=== PATIENT | female | born 1975 | race Caucasian/White ===

== ENCOUNTER 2017-01-19 11:56 | Outpatient (CLI) | payer MEDICAID ==
[~2017-01-19] VITALS: Ht 162.6 cm; Wt 79.1 kg
[2017-01-19] MEDS ORDERED: HYDRALAZINE HCL10 MG PO (15:39)
[2017-01-19] MEDS ORDERED: GLIPIZIDE10 MG PO (15:39)
[2017-01-19] MEDS ORDERED: CATAPRES0.1 MG PO (15:40)
[2017-01-19] MEDS ORDERED: COREG 3.1253.125 MG PO (15:40)
[2017-01-19] MEDS ORDERED: FOLATE0.4 MG PO (15:41)
[2017-01-19] MEDS ORDERED: VITAMIN D31000 UNI2 PO (15:42)
[2017-01-19] MEDS ORDERED: COLACE100 MG PO (15:42)
[2017-01-19] MEDS ORDERED: FERROUS SULFAT325 MG PO (15:42)
[2017-01-19] MEDS ORDERED: VITAMIN B-150 MG PO (15:43)
--- NOTE | 2017-01-19 16:10 | NUR ---
FIRST UNIT PRBC'S UP WITH NS AND BLOOD TUBING. SANDWICH TRAY GIVEN.
[2017-01-19 16:25] VITALS: BP 196/99; BMI 29.9
--- NOTE | 2017-01-19 18:08 | NUR ---
PRBC'S INFUSING WITHOUT SIGNS OF REACTION. CONSUMED 100% OF DIABETIC DIET. DENIES NEEDS. FAMILY AT BEDSIDE.
[2017-01-19 20:31] VITALS: Ht 162.6 cm; Wt 79.1 kg
== END 2017-01-19 23:24 | disposition home or self-care (01) ==
LOC: D.OPS 11:56 → D.M2 19:21 → D.OPS 23:24
DX: D64.9 Anemia, unspecified (principal)

== ENCOUNTER 2018-02-17 08:03 | Outpatient (CLI) | payer MEDICARE ==
[~2018-02-17] VITALS: Ht 162.6 cm; Wt 79.5 kg
[~2018-02-17 08:03] MED LIST: CATAPRES0.1 MG PO; COLACE100 MG PO; COREG 3.1253.125 MG PO; FERROUS SULFAT325 MG PO; FOLATE0.4 MG PO; GLIPIZIDE10 MG PO; HYDRALAZINE HCL10 MG PO; VITAMIN B-150 MG PO; VITAMIN D31000 UNI2 PO
[2018-02-17 09:56] VITALS: BP 125/60; Ht 162.6 cm; Wt 79.5 kg
== END 2018-02-17 15:45 | disposition home or self-care (01) ==
LOC: D.OPS 08:03
DX: D63.1 Anemia in chronic kidney disease (principal); N18.9 Chronic kidney disease, unspecified

== ENCOUNTER 2018-06-13 05:29 | Day surgery (SDC) | payer MEDICARE ==
[2018-06-12 13:13] LABS: EOSINOPHILS 2.1 % (0-7); HEMATOCRIT 37.5 % (36.0-48.0); HEMOGLOBIN 12.3 g/dL (12-16); IMMATURE GRANULOCYTES 0.1 % (0-5); LYMPHOCYTES 15.8 % (15-50); MCH 31.9 pg (26.0-34.0); MCHC 32.8 g/dL (31.0-37.0); MCV 97.4 fL (80.0-100.0); MEAN PLATELET VOLUME 13.3 fL (7.4-10.4); MONOCYTES 6.9 % (2-11); NEUTROPHILS 74.1 % (40-80); PLATELET COUNT 142 10x3/uL (130-400); RBC 3.85 10x6/uL (4.00-5.40); RDW 14.3 % (11.5-14.5); WBC 7.2 10x3/uL (4.8-10.8)
[2018-06-12 13:25] LABS: ANION GAP 14.7 mmol/L (8-16); CALCIUM 8.4 mg/dL (8.5-10.1); CARBON DIOXIDE 24.9 mmol/L (21.0-32.0); CREATININE - SERUM 2.4 mg/dL (0.6-1.3); POTASSIUM - SERUM 3.6 mmol/L (3.5-5.1)
[2018-06-12 13:29] LABS: PROTIME 13.6 SECONDS (11.6-15.0)
[2018-06-12 13:30] LABS: INR 1.1 (0.85-1.17)
[2018-06-12 13:37] LABS: APTT 28.1 SECONDS (22.8-39.4)
[~2018-06-13] VITALS: Ht 167.6 cm; Wt 73.5 kg
--- NOTE | ~2018-06-13 | OP ---
PATIENT NAME: NY SCHWARTZ MEDICAL RECORD: [id number] :71 LOCATION:[facility] ADMISSION DATE: SURGEON: BRITNI GIANG MD DATE OF OPERATION: 06/13/2018 PREOPERATIVE DIAGNOSES: End-stage renal disease on chronic hemodialysis, dependence on hemodialysis, diabetes type 2 with renal manifestations, and essential hypertension. POSTOPERATIVE DIAGNOSES: End-stage renal disease on chronic hemodialysis, dependence on hemodialysis, diabetes type 2 with renal manifestations, and essential hypertension. OPERATION PERFORMED: Creation of a Lazaro type left brachial artery to basilic vein AV fistula as a first stage or preparation for a second stage procedure to create a brachial artery to translocated basilic fistula. SURGEON: Britni Giang MD ANESTHESIA: Regional nerve block plus general with LMA per WASHCOAT WIPER. REFERRING PHYSICIAN: Daryl England MD PREOPERATIVE NOTE: Ms. Schwartz is a 42-year-old white female patient with end-stage renal disease due to diabetes and hypertension is presently dialyzing with a tunneled dialysis catheter in the right internal jugular vein. She needs long-term access. Vein mapping has showed small veins. She is right handed. I am going to operate on the left and ultrasound to be sure, but I am most likely going to use the basilic vein above the antecubital space. DESCRIPTION OF PROCEDURE: Under general anesthesia with LMA as well as a regional nerve block per WASHCOAT WIPER, the patient was prepped and draped in sterile manner. I used a Martha drain as a proximal venous tourniquet and applied nitroglycerin ointment to the forearm and arm. I examined her with Duplex ultrasound and noted that the basilic vein above the elbow was the best choice. I saw calcifications and atherosclerotic changes in the brachial artery, but there was a good lumen. I made a longitudinal incision on the medial aspect of the arm just above the antecubital space and extended this a little bit below the level of the joint and the incision was deepened and the basilic vein exposed and dissected out for a distance of 5 or 6 cm. It was treated with topical papaverine. I then exposed the brachial artery through this same incision and exposed and controlled it then with Silastic vascular tapes. The vein was closed with Hemoclips distally and then transected, shortened, and beveled and flushed with heparinized saline and adventitia stripped preparing it for anastomosis. The vein was flushed with heparinized saline again and treated with more topical papaverine. The artery was occluded and opened and flushed proximally and distally with heparinized saline. The vein was then anastomosed end-to-side, end of vein to side of artery, with continuous running 7-0 Prolene establishing approximately a 7-mm diameter anastomosis. The artery was noted to be atherosclerotic with areas of calcification, but had a good lumen. Upon release of the occluding clamps, excellent flow was established and there was a strong palpable thrill and good continuous pulsatile flow on Doppler exam. Doppler pulsatile flow was preserved in the brachial artery distal to the anastomosis OPERATIVE REPORT [id number] NY SCHWARTZ and the radial artery at the wrist. The wound was closed with interrupted inverted 3-0 Vicryl and running intracuticular 4-0 Stratafix and sealed with Dermabond glue and dressed with Maxorb Ag, Tegaderm, and Cavilon skin prep. The patient was awakened and in stable condition taken to the recovery room. The patient will go home today. She will be given a prescription for 20 [place] 5 mg tablets with no planned refills and she is allowed to take 1 or if necessary 2 p.o. q.4 hours p.r.n. pain. She is to use a sling only until the effects of her nerve block wear off and then certainly tomorrow, I would like her to be resuming as normal activities as possible using her left arm. She is to shower and wash over the waterproof plastic dressing as often as desired and if possible leave the original operative dressing in situ until I see her in the office and I will remove the dressing and tend to her wound. If the dressing becomes wet or dirty or she just wants to change it, she may. She can clean the wound at home with soap and water and redress it with dry gauze. She is to continue all of her same preoperative medications, diet and dialysis schedule. TRANSINT:[id number] Voice Confirmation ID: [id number] DOCUMENT ID: [id number] BRITNI GIANG MD at 1054 CC: DARYL ENGLAND [id number] DICTATION DATE: 06/13/18 1037 VENET[facility] BLIND WASHER: 06/13/18 1114 [facility] 06/13/18 [facility] [address] [place] [address]
[2018-06-13] MEDS ORDERED: ZESTRIL40 MG PO (06:46)
[2018-06-13] MEDS ORDERED: NORMODYNE / TR200 MG PO (06:47)
[2018-06-13] MEDS ORDERED: NIFEDIPINE ER60 MG PO ×2 (06:47)
[2018-06-13 06:55] VITALS: Ht 167.6 cm; Wt 73.5 kg
[2018-06-13 07:02] LABS: HCG URINE NEGATIVE (NEGATIVE)
[2018-06-13] MEDS ORDERED: HYDROCODON-ACE1 EAC7 PO (10:17)
== END 2018-06-13 13:25 | disposition home or self-care (01) ==
LOC: D.OPS 05:29 → D.PAN 08:00 → D.OPS 08:00
PROVIDERS: Internal Medicine Nephrology; Surgery
DX: E11.22 Type 2 diabetes mellitus with diabetic chronic kidney disease (principal); I12.0 Hypertensive chronic kidney disease with stage 5 chronic kidney disease or end stage renal disease; N18.6 End stage renal disease; Z99.2 Dependence on renal dialysis; Z01.812 Encounter for preprocedural laboratory examination

== ENCOUNTER 2018-09-22 05:40 | Day surgery (SDC) | payer MEDICARE ==
[2018-09-21 13:32] LABS: APTT 29.4 SECONDS (22.8-39.4); INR 1.07 (0.85-1.17); PROTIME 13.4 SECONDS (11.6-15.0)
[2018-09-21 13:34] LABS: BASOPHILS 1.9 % (0-2); EOSINOPHILS 2.2 % (0-7); HEMATOCRIT 37.8 % (36.0-48.0); HEMOGLOBIN 12.5 g/dL (12-16); IMMATURE GRANULOCYTES 0.2 % (0-5); LYMPHOCYTES 23.2 % (15-50); MCH 32.5 pg (26.0-34.0); MCHC 33.1 g/dL (31.0-37.0); MCV 98.2 fL (80.0-100.0); MEAN PLATELET VOLUME 13.4 fL (7.4-10.4); MONOCYTES 7.5 % (2-11); PLATELET COUNT 141 10x3/uL (130-400); RBC 3.85 10x6/uL (4.00-5.40); RDW 14.7 % (11.5-14.5); WBC 6.3 10x3/uL (4.8-10.8)
[2018-09-21 13:37] LABS: ANION GAP 14.1 mmol/L (8-16); CALCIUM 8.9 mg/dL (8.5-10.1); CARBON DIOXIDE 31.3 mmol/L (21.0-32.0); POTASSIUM - SERUM 3.4 mmol/L (3.5-5.1)
[~2018-09-22] VITALS: Ht 162.6 cm; Wt 73.9 kg
--- NOTE | ~2018-09-22 | OP ---
PATIENT NAME: NY SCHWARTZ MEDICAL RECORD: [id number] :71 LOCATION:[facility] ADMISSION DATE: SURGEON: BRITNI GIANG MD DATE OF OPERATION: 09/22/2018 REFERRING PHYSICIAN: Dr. Bonilla Trujillo. PREOPERATIVE DIAGNOSES: End-stage renal disease, dependence on hemodialysis and mechanical complication of surgically created AV fistula, left arm T82.590. POSTOPERATIVE DIAGNOSES: End-stage renal disease, dependence on hemodialysis and mechanical complication of surgically created AV fistula, left arm T82.590. OPERATION PERFORMED: Planned revision of Lazaro type brachiobasilic AV fistula. SURGEON: Britni Giang MD ANESTHESIA: General by DOOR TRIMMER with an LMA in addition to regional nerve block. PREOPERATIVE NOTE: Ms. Schwartz is a 43-year-old white female patient from [facility], who has end-stage renal disease and is on chronic hemodialysis. She is status post creation of a Lazaro brachiobasilic AV fistula, which was performed anticipating a translocation procedure to create a standard translocated basilic vein AV fistula. After several weeks, she has returned to the operating room now for that secondary planned procedure. DESCRIPTION OF PROCEDURE: Under anesthesia in supine position, she was prepped and draped in sterile manner. I examined her with ultrasound and noted that the basilic vein was disappointingly smaller than I had anticipated, though it had dilated considerably since the original anastomosis was performed. A longitudinal incision was made and the vein was mobilized from just above the arterial anastomosis at the antecubital level to the axilla. Tributaries were divided between clips and Vicryl ties and the vein was freed all the way proximally to the confluence with the last brachial vein to form the axillary vein and that brachial vein was preserved. The nerve branches around the vein also were preserved as much as possible; however, the vein was somewhat fragile and as I have said smaller than I had anticipated it would be and I elected not to transect it and placed it in a tunnel with either an end-to-end vein anastomosis or a new arterial anastomosis, but instead I elected just to revise the fistula by elevating the vein into immediately subcutaneous level. The wound was irrigated with Ancef and gentamicin solution. Hemostasis obtained additionally with electrocautery and the wound was closed without the use of a drain approximating the subcutaneous tissues deep to the basilic vein over a segment about a palm's width and length or diameter. This was done with 3-0 Vicryl sutures. The skin was then closed over the vein with a running 4-0 Stratafix. The incision was sealed with Dermabond glue and dressed with Maxorb AG and Tegaderm with Cavilon skin prep. I examined the patient with a handheld continuous wave Doppler and demonstrated preservation of good pulsatile flow in the radial and ulnar arteries at the wrist as well as in the brachial artery in the distal antecubital space. PLAN: The patient will go home later today and she will return to see me in my office Tuesday next week. We will change her dressing and examine her wound at that time. In the meantime, she can leave the original operative dressing in place. She will continue her same medications, diet, and dialysis schedule and OPERATIVE REPORT [id number] NY SCHWARTZ I am giving her a prescription for 15 [place] 5/325 tablets, she can take one q.4-6 hours p.r.n. pain. TRANSINT:[id number] Voice Confirmation ID: [id number] DOCUMENT ID: [id number] BRITNI GIANG MD at 1655 CC: BONILLA TRUJILLO MD [id number] DICTATION DATE: 09/22/18 1118 ARABIC TRANSLATOR: 09/22/18 1258 [facility] 09/22/18 [id number] [place] [address]
[~2018-09-22 05:40] MED LIST changes: +HYDROCODON-ACE1 EAC7 PO; +NIFEDIPINE ER60 MG PO; +NORCO 10-325 TA1 TAB PO; +NORMODYNE / TR200 MG PO; +ZESTRIL40 MG PO
[2018-09-22] MEDS ORDERED: CATAPRES0.1 MG (06:24)
[2018-09-22 06:27] VITALS: Ht 162.6 cm; Wt 73.9 kg
== END 2018-09-22 13:45 | disposition home or self-care (01) ==
LOC: D.OPS 05:40
PROVIDERS: Surgery
DX: T82.590A Other mechanical complication of surgically created arteriovenous fistula, initial encounter (principal); N18.6 End stage renal disease; Z99.2 Dependence on renal dialysis; Z01.812 Encounter for preprocedural laboratory examination

== ENCOUNTER → 2019-01-05 12:01 | Outpatient (CLI) | payer MEDICARE ==
[2018-09-22 06:27] VITALS: BMI 28.4
[~2019-01-05 12:01] MED LIST changes: +CATAPRES0.1 MG
== END | disposition home or self-care (01) ==
LOC: D.RAD 12:01
PROVIDERS: ATTEND Family Medicine
DX: L98.499 Non-pressure chronic ulcer of skin of other sites with unspecified severity (principal); L84 Corns and callosities; M79.671 Pain in right foot